=== PATIENT | female | born 1960 | race Caucasian/White ===

== ENCOUNTER 2024-03-27 16:34 | Emergency (ER) | payer BC ==
[~2024-03-27] VITALS: Ht 157.5 cm; Wt 52.6 kg
[~2024-03-27 16:34] MED LIST: ACETAMINOPHEN-1 EAC4 PO; CEPHALEXIN500 MG PO; FIORICET 50-301 EACH PO; HIPREX1 GM PO; LOSARTAN-HCTZ1 EAC2 PO; MACROBID 100 M100 MG PO; PEPCID AC10 MG PO; ROPINIROLE HC0.25 MG PO; [UNRECOGNIZED DRUG - OTHER] PO
[2024-03-27 17:29] LABS: BASOPHILS # (AUTO) 0.1 (0.0-0.1); EOSINOPHILS # (AUTO) 0.2 (0.0-0.4); EOSINOPHILS % 1.5 % (0.0-6.0); HEMATOCRIT 42.8 % (34.2-44.1); HEMOGLOBIN 14.8 g/dL (12.0-16.0); LYMPHOCYTES # (AUTO) 4.3 (1.0-3.2); LYMPHOCYTES % 34.5 % (18.0-39.1); MEAN CORPUSCULAR HEMOGLOBIN 33.9 pg (28-32); MEAN CORPUSCULAR HGB CONC 34.6 g/dL (31-35); MEAN CORPUSCULAR VOLUME 98.2 fL (81-99); MONOCYTES % 8.2 % (4.4-11.3); NEUTROPHILS # (AUTO) 6.7 (2.1-6.9); NEUTROPHILS % 54.4 % (38.7-80.0); PLATELET COUNT 326 x10e3/uL (140-360); RED BLOOD COUNT 4.36 x10e6/uL (3.6-5.1); RED CELL DISTRIBUTION WIDTH 14.1 % (11.7-14.4); WHITE BLOOD COUNT 12.37 x10e3/uL (4.8-10.8)
[2024-03-27 17:42] LABS: INR 0.82; PROTHROMBIN TIME 11.9 seconds (11.9-14.5)
[2024-03-27 17:43] LABS: PARTIAL THROMBOPLASTIN TIME 26.9 seconds (23.8-35.5)
[2024-03-27 17:45] VITALS: BP 171/117
[2024-03-27] MEDS: HYDRALAZINE HCL 20 MG/ML VIAL IV STA (17:45)
[2024-03-27] MEDS: KETOROLAC TROMETHAMINE 30 MG/ML VIAL IV STA (17:45)
[2024-03-27] MEDS: ACETAMINOPHEN 325 MG TAB PO ONE (17:49)
[2024-03-27 17:52] LABS: ALBUMIN 4.4 g/dL (3.5-5.0); ALBUMIN/GLOBULIN RATIO 1.2 (0.8-2.0); ANION GAP 16.1 mmol/L (8-16); BILIRUBIN,TOTAL 0.2 mg/dL (0.2-1.2); CREATININE, SERUM 0.83 mg/dL (0.57-1.11); POTASSIUM 4.1 mmol/L (3.5-5.1)
[2024-03-27 18:10] LABS: CLARITY,URINE CLEAR (CLEAR); COLOR,URINE YELLOW (YELLOW); GLUCOSE, URINE NEGATIVE (NEGATIVE); LEUKOCYTE ESTERASE ,URINE NEGATIVE (NEGATIVE); NITRITE,URINE NEGATIVE (NEGATIVE); PH,URINE 5.5 (5 - 7); PROTEIN,URINE DIPSTICK 2+ (NEGATIVE)
[2024-03-27 18:11] LABS: BACTERIA,URINE FEW /HPF; BILIRUBIN,URINE NEGATIVE (NEGATIVE); EPITHELIAL CELLS,URINE MANY /LPF; KETONES,URINE NEGATIVE (NEGATIVE); URINE UROBILINOGEN 0.2 mg/dL (0.2 - 1); WBC,URINE (MAN) 0-5 /HPF (0-5)
[2024-03-27] MEDS ORDERED: FLOMAX0.4 MG PO (18:19)
[2024-03-27] MEDS ORDERED: HYDROCODON-ACE1 EA11 PO (18:19)
[2024-03-27] MEDS ORDERED: ONDANSETRON ODT4 MG PO (18:21)
[2024-03-27 18:34] VITALS: O2SAT 99
== END 2024-03-27 18:47 | disposition home or self-care (01) ==
LOC: ER 17:01
DX: R50.9 Fever, unspecified (principal); N13.2 Hydronephrosis with renal and ureteral calculous obstruction; R10.30 Lower abdominal pain, unspecified; I10 Essential (primary) hypertension; M32.9 Systemic lupus erythematosus, unspecified; M06.9 Rheumatoid arthritis, unspecified
CPT/HCPCS: 36415; 74176; 80053; 81001; 85025; 85610; 85730; 99284; J0360; J1885

== ENCOUNTER 2024-07-25 20:57 | Emergency (ER) | payer BC ==
[~2024-07-25] VITALS: Ht 157.5 cm; Wt 57.2 kg
[~2024-07-25 20:57] MED LIST changes: +FLOMAX0.4 MG PO; +HYDROCODON-ACE1 EA11 PO; +ONDANSETRON ODT4 MG PO
[2024-07-25 21:22] VITALS: TEMP 98.4
[2024-07-25] MEDS ORDERED: ONDANSETRON HCL INJ 2MG/ML 2ML 2 MG/ML VIAL ONE (21:33)
[2024-07-25] MEDS: ONDANSETRON HCL INJ 2MG/ML 2ML 2 MG/ML VIAL IV STA (21:33)
[2024-07-25] MEDS ORDERED: KETOROLAC TROMETHAMINE 30 MG/ML VIAL ONE (21:33)
[2024-07-25] MEDS: KETOROLAC TROMETHAMINE 30 MG/ML VIAL IV STA (21:33)
[2024-07-25 22:35] LABS: BASOPHILS # (AUTO) 0.2 (0.0-0.1); BASOPHILS % 1.7 % (0.0-1.0); EOSINOPHILS # (AUTO) 0.3 (0.0-0.4); EOSINOPHILS % 2.6 % (0.0-6.0); HEMATOCRIT 46.4 % (34.2-44.1); HEMOGLOBIN 15.7 g/dL (12.0-16.0); LYMPHOCYTES # (AUTO) 4.6 (1.0-3.2); LYMPHOCYTES % 39.8 % (18.0-39.1); MEAN CORPUSCULAR HEMOGLOBIN 33.7 pg (28-32); MEAN CORPUSCULAR HGB CONC 33.8 g/dL (31-35); MEAN CORPUSCULAR VOLUME 99.6 fL (81-99); NEUTROPHILS # (AUTO) 5.3 (2.1-6.9); NEUTROPHILS % 46.3 % (38.7-80.0); PLATELET COUNT 138 x10e3/uL (140-360); RED BLOOD COUNT 4.66 x10e6/uL (3.6-5.1); RED CELL DISTRIBUTION WIDTH 14.5 % (11.7-14.4); WHITE BLOOD COUNT 11.47 x10e3/uL (4.8-10.8)
[2024-07-25 22:46] LABS: BILIRUBIN,URINE NEGATIVE (NEGATIVE); CLARITY,URINE CLOUDY (CLEAR); COLOR,URINE YELLOW (YELLOW); GLUCOSE, URINE NEGATIVE (NEGATIVE); KETONES,URINE NEGATIVE (NEGATIVE); LEUKOCYTE ESTERASE ,URINE NEGATIVE (NEGATIVE); NITRITE,URINE NEGATIVE (NEGATIVE); PH,URINE 5.5 (5 - 7); PROTEIN,URINE DIPSTICK 2+ (NEGATIVE); URINE UROBILINOGEN 0.2 mg/dL (0.2 - 1)
[2024-07-25 22:48] LABS: ANION GAP 14.5 mmol/L (8-16); CALCIUM 10.2 mg/dL (8.4-10.2); CREATININE, SERUM 0.83 mg/dL (0.57-1.11); POTASSIUM 3.5 mmol/L (3.5-5.1)
[2024-07-25 22:58] LABS: BACTERIA,URINE MANY /HPF; EPITHELIAL CELLS,URINE MANY /LPF
[2024-07-25 22:59] LABS: MUCUS,URINE MANY (RARE)
[2024-07-25] MEDS ORDERED: HYDRALAZINE HCL 20 MG/ML VIAL IV STA (23:35)
[2024-07-25] MEDS: Morphine 4mg INJECTION 4 MG/ML INJ IV ONE (23:47)
[2024-07-25] MEDS ORDERED: Morphine 4mg INJECTION 4 MG/ML INJ ONE (23:48)
[2024-07-26 00:42] VITALS: PULSE 56; RESP 16
[2024-07-26] MEDS ORDERED: PYRIDIUM200 MG PO (01:47)
[2024-07-26] MEDS ORDERED: CEFDINIR300 MG PO (01:47)
[2024-07-26 02:06] VITALS: BP 184/87; O2SAT 96
== END 2024-07-26 02:05 | disposition home or self-care (01) ==
LOC: ER 21:15
DX: R11.2 Nausea with vomiting, unspecified (principal); N39.0 Urinary tract infection, site not specified; R10.9 Unspecified abdominal pain; M32.9 Systemic lupus erythematosus, unspecified; M06.9 Rheumatoid arthritis, unspecified
CPT/HCPCS: 36415; 74176; 80048; 81001; 85025; 87086; 99284; J1885; J2270; J2405

== ENCOUNTER 2025-01-21 14:58 | Emergency (ER) | payer BC ==
[~2025-01-21] VITALS: Ht 157.5 cm; Wt 64.0 kg
[~2025-01-21 14:58] MED LIST changes: +CEFDINIR300 MG PO; +PYRIDIUM200 MG PO
[2025-01-21] MEDS ORDERED: FAMOTIDINE20 MG PO (15:45)
[2025-01-21] MEDS ORDERED: OMEPRAZOLE40 MG PO (15:45)
[2025-01-21] MEDS ORDERED: MAALOX MAXIMUM355 ML PO (15:45)
[2025-01-21] MEDS: FAMOTIDINE 20 MG/2 ML VIAL IV ONE (15:52)
[2025-01-21] MEDS: LACTATED RINGER'S 1,000 ML INJ ONE (15:52)
[2025-01-21] MEDS: ONDANSETRON HCL INJ 2MG/ML 2ML 2 MG/ML VIAL IV ONE (15:52)
[2025-01-21] MEDS: KETOROLAC TROMETHAMINE 30 MG/ML VIAL IV ONE (15:57)
[2025-01-21] MEDS ORDERED: ONDANSETRON ODT4 MG PO (16:37)
[2025-01-21] MEDS ORDERED: PROBIOTIC & AC1 EACH PO (17:29)
[2025-01-21] MEDS ORDERED: CIPRO500 MG PO (17:29)
[2025-01-21] MEDS ORDERED: CEFTRIAXONE 1 GM VIAL ONE (17:39)
[2025-01-21] MEDS ORDERED: PROMETHAZINE HCL (IM) 25 MG/ML VIAL IM ONE (17:39)
[2025-01-21] MEDS: CEFTRIAXONE 1 GM VIAL IM ONE (17:49)
[2025-01-21] MEDS: PROMETHAZINE 25MG/ NS 50ML (IV) IV ONE (17:49)
[2025-01-21 17:56] VITALS: PULSE 65; RESP 20; TEMP 97.3; O2SAT 99
== END 2025-01-21 18:00 | disposition home or self-care (01) ==
LOC: FSED 15:03
DX: R11.2 Nausea with vomiting, unspecified (principal); K52.9 Noninfective gastroenteritis and colitis, unspecified; R10.30 Lower abdominal pain, unspecified; I10 Essential (primary) hypertension; M32.9 Systemic lupus erythematosus, unspecified; M06.9 Rheumatoid arthritis, unspecified; Z87.442 Personal history of urinary calculi
CPT/HCPCS: 74176; 80053; 99283; J0696; J1885; J2405; J2550; J7121

== ENCOUNTER 2025-02-23 16:50 | Emergency (ER) | payer BC ==
[~2025-02-23] VITALS: Ht 157.5 cm; Wt 63.5 kg
[~2025-02-23 16:50] MED LIST changes: +CIPRO500 MG PO; +FAMOTIDINE20 MG PO; +MAALOX MAXIMUM355 ML PO; +OMEPRAZOLE40 MG PO; +PROBIOTIC & AC1 EACH PO
[2025-02-23 16:59] VITALS: TEMP 97.5
[2025-02-23] MEDS ORDERED: ONDANSETRON HCL INJ 2MG/ML 2ML 2 MG/ML VIAL IV STA (17:53)
[2025-02-23 18:00] LABS: HEMATOCRIT 50.1 % (34.2-44.1); HEMOGLOBIN 17.4 g/dL (12.0-16.0); MEAN CORPUSCULAR HEMOGLOBIN 33.3 pg (28-32); MEAN CORPUSCULAR HGB CONC 34.7 g/dL (31-35); PLATELET COUNT 357 x10e3/uL (140-360); RED BLOOD COUNT 5.22 x10e6/uL (3.6-5.1); WHITE BLOOD COUNT 16.34 x10e3/uL (4.8-10.8)
[2025-02-23 18:04] LABS: CLARITY,URINE TURBID (CLEAR); COLOR,URINE YELLOW (YELLOW); GLUCOSE, URINE NEGATIVE (NEGATIVE); KETONES,URINE NEGATIVE (NEGATIVE); LEUKOCYTE ESTERASE ,URINE NEGATIVE (NEGATIVE); NITRITE,URINE NEGATIVE (NEGATIVE); PH,URINE 5.5 (5 - 7); PROTEIN,URINE DIPSTICK >=300 (NEGATIVE); URINE UROBILINOGEN 0.2 mg/dL (0.2 - 1)
[2025-02-23 18:05] LABS: BILIRUBIN,URINE SMALL (NEGATIVE)
[2025-02-23 18:11] LABS: RBC,URINE >50 /HPF (0-5); WBC,URINE (MAN) 0-5 /HPF (0-5)
[2025-02-23 18:12] LABS: BACTERIA,URINE FEW /HPF; EPITHELIAL CELLS,URINE FEW /LPF
[2025-02-23] MEDS: Morphine 4mg INJECTION 4 MG/ML INJ IV STA ×2 (18:23→22:10)
[2025-02-23] MEDS: SODIUM CHLORIDE 0.9% 1000ML 1,000 ML IV ONE (18:23)
[2025-02-23 18:25] LABS: ALBUMIN 4.7 g/dL (3.5-5.0); ALBUMIN/GLOBULIN RATIO 1.5 (0.8-2.0); ANION GAP 19.3 mmol/L (8-16); BILIRUBIN,TOTAL 0.6 mg/dL (0.2-1.2); CALCIUM 9.9 mg/dL (8.4-10.2); CREATININE, SERUM 0.94 mg/dL (0.57-1.11); TOTAL PROTEIN 7.9 g/dL (6.5-8.1)
[2025-02-23 18:33] LABS: POTASSIUM 3.3 mmol/L (3.5-5.1)
[2025-02-23 18:34] LABS: CORONAVIRUS COVID-19 AG NEGATIVE (NEGATIVE); INFLUENZA A AG NEGATIVE (NEGATIVE); INFLUENZA B AG NEGATIVE (NEGATIVE)
[2025-02-23] MEDS ORDERED: IOPAMIDOL 370 MG/ML 100 ML INFUS..BTL INJ ONE (18:44)
[2025-02-23] MEDS: ONDANSETRON HCL INJ 2MG/ML 2ML 2 MG/ML VIAL IV STA ×2 (18:53→22:09)
[2025-02-23] MEDS ORDERED: KETOROLAC TROMETHAMINE 30 MG/ML VIAL IV STA (20:12)
[2025-02-23 20:29] VITALS: PULSE 62; RESP 18
[2025-02-23] MEDS ORDERED: KETOROLAC TROMETHAMINE 30 MG/ML VIAL ONE (20:36)
[2025-02-23] MEDS: KETOROLAC TROMETHAMINE 30 MG/ML VIAL IV STA (20:47)
[2025-02-23] MEDS ORDERED: LOMOTIL TABLET1 EACH PO (21:52)
[2025-02-23] MEDS ORDERED: ONDANSETRON ODT4 MG PO (21:52)
[2025-02-23] MEDS ORDERED: PROTONIX20 MG PO (21:52)
[2025-02-23 22:29] VITALS: BP 141/91; PULSE 62; RESP 16; TEMP 98.2; O2SAT 99
[2025-02-24] MEDS ORDERED: AMOX TR-K CLV1 EAC2 PO (00:56)
== END 2025-02-23 22:31 | disposition home or self-care (01) ==
LOC: ER 17:54
DX: R10.13 Epigastric pain (principal); K52.9 Noninfective gastroenteritis and colitis, unspecified; R11.2 Nausea with vomiting, unspecified
CPT/HCPCS: 36415; 74177; 80053; 81001; 83690; 85007; 85027; 87428; 93005; 99284; J1885; J2270; J2405; J7030; Q9967

== ENCOUNTER 2025-07-27 19:45 | Emergency (ER) | payer BC ==
[~2025-07-27] VITALS: Ht 157.5 cm; Wt 63.5 kg
[~2025-07-27 19:45] MED LIST changes: +AMOX TR-K CLV1 EAC2 PO; +LOMOTIL TABLET1 EACH PO; +PROTONIX20 MG PO
[2025-07-27] MEDS ORDERED: KETOROLAC TROMETHAMINE 60 MG/2 ML VIAL ONE (20:10)
[2025-07-27] MEDS: KETOROLAC TROMETHAMINE 60 MG/2 ML VIAL IM STA (20:33)
[2025-07-27] MEDS ORDERED: PREDNISONE20 MG PO (22:44)
[2025-07-27] MEDS ORDERED: KETOROLAC TROME10 MG PO (22:44)
[2025-07-27 23:11] VITALS: PULSE 65; RESP 16; TEMP 98.8; O2SAT 99
[2025-07-27] MEDS: Morphine 4mg INJECTION 4 MG/ML INJ IM STA (23:12)
== END 2025-07-27 23:20 | disposition home or self-care (01) ==
LOC: ER 20:01
DX: M54.32 Sciatica, left side (principal); R22.0 Localized swelling, mass and lump, head; I10 Essential (primary) hypertension; Z87.442 Personal history of urinary calculi; Z87.440 Personal history of urinary (tract) infections
CPT/HCPCS: 74176; 99283; J1885; J2270